=== PATIENT | female | born 1960 | race Caucasian/White ===

== ENCOUNTER 2018-02-10 17:48 | Emergency (ER) | payer OTHER, SELFPAY ==
[2018-02-10 17:52] VITALS: BP 131/77; PULSE 69; RESP 16; TEMP 36.7; O2SAT 97
--- NOTE | 2018-02-10 18:00 | ED.LOWEXIN ---
HPI - Extremity Injury (Lower) <FRANCISCO Pepe - Last Filed: 02/10/18 23:38> General Chief Complaint: Extremity Injury, Lower Stated Complaint: SWOLLEN KNEE Time Seen by Provider: 02/10/18 18:00 History of Present Illness HPI Narrative: 57-year-old female here for complaint of a right mid sided knee pain over the past 2-3 days. She states that she has been stepping high steps up and down in and out of a boat over the last few days. She denies a specific injuries to the right knee. Increased pain with ambulation. She states she does have a hard time ambulating due to the pain. No other concerns or complaints. She denies any relievers of the pain other than not bearing weight. MD complaint: knee injury Related Data Home Medications Medication Instructions Recorded Confirmed Aspir-81 02/10/18 diclofenac potassium 50 mg PO BID 02/10/18 02/10/18 gemfibrozil 02/10/18 hydrochlorothiazide 12.5 mg PO DAILY 02/10/18 02/10/18 losartan 25 mg PO DAILY 02/10/18 02/10/18 omega 2-tac-lwp-fish oil [Fish Oil] 02/10/18 Allergies Allergy/AdvReac Type Severity Reaction Status Date / Time bee venom protein (honey bee) Allergy Verified 02/10/18 17:54 clarithromycin [From Biaxin] Allergy Verified 02/10/18 17:54 Penicillins Allergy Verified 02/10/18 17:54 Review of Systems <FRANCISCO ePpe - Last Filed: 02/10/18 23:38> Constitutional Denies chills, Denies fever(s), Denies lethargy and Denies weakness Eyes Denies change in vision, Denies eye discharge, Denies irritation and Denies loss of vision ENT Ears, Nose, Mouth, and Throat: Denies change in voice, Denies neck pain and Denies sore throat Cardiovascular Denies chest pain, Denies irregular heart rhythm, Denies lightheadedness, Denies palpitations, Denies dyspnea, Denies dyspnea on exertion and Denies orthopnea Respiratory Denies cough, Denies dyspnea, Denies dyspnea on exertion and Denies wheezing Gastrointestinal Gastrointestinal: Denies abdominal pain, Denies change in bowel habits, Denies diarrhea, Denies nausea and Denies vomiting Genitourinary Denies hematuria, Denies flank pain, Denies urinary incontinence and Denies urinary urgency Musculoskeletal Denies neck pain Comments: Right knee pain Integumentary/Breasts Denies pruritus, Denies erythema, Denies rash and Denies wounds Neurologic Denies confusion, Denies loss of vision and Denies weakness Psychiatric Denies anxiety, Denies confusion, Denies depression, Denies homicidal ideation and Denies suicidal ideation Endocrine Denies palpitations Allergic/Immunologic Denies wheezing Exam <FRANCISCO Pepe - Last Filed: 02/10/18 23:38> Initial Vital Signs Initial Vital Signs: Vital Signs Temperature 98.1 F 02/10/18 17:52 Pulse Rate 69 02/10/18 17:52 Respiratory Rate 16 02/10/18 17:52 Blood Pressure 131/77 H 02/10/18 17:52 Pulse Oximetry 97 02/10/18 17:52 Const General: cooperative and well developed Nutritional Appearance: well nourished Orientation: alert, awake, oriented x3 and not confused HENMT Mouth: oral mucosae normal and moist mucous membranes Eyes Conjunctivae: conjunctivae normal Sclera: sclerae normal Pupils: PERRL EOM: EOM intact bilaterally Resp Effort & Inspection: normal respiratory effort, able to speak in complete sentences, no respiratory distress and no use of accessory muscles Auscultation: clear to auscultation bilaterally, no rales, no rhonchi and no wheezes Cardio Rate: regular rate Rhythm: regular rhythm Heart Sounds: no click, no gallops, no murmurs and no rubs Pulses: normal peripheral pulses Skin General: no rashes or lesions noted, No jaundice and No petechiae Extrem Other: Right knee with no signs of trauma. No swelling no ecchymosis no erythema. Full range of motion. Distal sensation is intact. Distal range of motion is intact. Distal pulses are intact. Negative anterior-posterior drawer sign. Negative varus and valgus stress test. <Archie Marie MD - Last Filed: 02/28/18 09:34> Initial Vital Signs Initial Vital Signs: Vital Signs Temperature 98.1 F 02/10/18 17:52 Pulse Rate 69 02/10/18 17:52 Respiratory Rate 16 02/10/18 17:52 Blood Pressure 131/77 H 02/10/18 17:52 Pulse Oximetry 97 02/10/18 17:52 Course <FRANCISCO Pepe - Last Filed: 02/10/18 23:38> Orders Ordered: ED Orders 02/10/18 19:16 XR knee RT 3V Stat Vital Signs - 8 hr 02/10/18 17:52 02/10/18 20:00 02/10/18 20:30 Temperature 98.1 F Pulse Rate 69 88 Pulse Rate [Dorsalis Pedis] 72 Respiratory Rate 16 14 Blood Pressure 131/77 H Blood Pressure [Left Arm] 128/72 H Pulse Oximetry 97 98 <Archie Marie MD - Last Filed: 02/28/18 09:34> Orders Ordered: ED Orders 02/10/18 19:16 XR knee RT 3V Stat Vital Signs - 8 hr 02/10/18 17:52 02/10/18 20:00 02/10/18 20:30 Temperature 98.1 F Pulse Rate 69 88 Pulse Rate [Dorsalis Pedis] 72 Respiratory Rate 16 14 Blood Pressure 131/77 H Blood Pressure [Left Arm] 128/72 H Pulse Oximetry 97 98 MDM - Extremity Injury (Lower) <FRANCISCO Pepe - Last Filed: 02/10/18 23:38> Imaging Data knee: Radiologist's impression: Signed Patient: DEANNA SALINAS MR#: [id number] : 1960 Acct:[id number] Age/Sex: 57 / F Date of Service: 02/10/18 Loc: ED Accession Number: [id number] Procedure: XR knee RT 3V Ordering Provider: Jadiel Bradley PROCEDURE: XR KNEE RT 3V INDICATIONS: Pain in right knee last 3 days TECHNIQUE: 3 views of the knee were acquired. COMPARISON: None. FINDINGS: Bones: No fractures or dislocations. No suspicious bony lesions. Soft tissues: No joint effusion. No suspicious soft tissue calcifications. IMPRESSION: No trauma found, mild knee joint osteoarthritis at the medial and lateral compartments, moderate osteoarthritic thinning of the joint width at the lateral facet of the patellofemoral joint. Dictated by: Dmitry Burrows M.D. on 02/10/2018 at 20:13 MDM Narrative Medical decision making narrative: X-ray the right knee was obtained was negative for any acute findings. Signs and symptoms presents as acute sprain. She is placed in knee immobilizer and crutches for support and nonweightbearing. [id number] Tylenol and Motrin as needed for any discomfort. Ice and elevation to help with swelling. Follow up with her primary care provider next week for re-evaluation. For any worsening symptoms return to the emergency room. If still painful next week recommend advanced imaging such as MRI. Discharge Plan Departure Patient Disposition: Home, Self-Care Clinical Impression: Right knee sprain Discharge Date/Time: 02/10/18 20:49 Interventions: ED Discharge Assessment Last Done: 02/10/18 20:48 Instructions: DI for Knee Sprain Activity Restrictions/Additional Instructions: X-ray the right knee was obtained was negative for any acute findings. Signs and symptoms presents as acute sprain. You areplaced in knee immobilizer and crutches for support and nonweightbearing use as directed. [id number] Tylenol and Motrin as needed for any discomfort. Ice and elevation to help with swelling. Follow up with her primary care provider next week for re-evaluation. For any worsening symptoms return to the emergency room. If still painful next week recommend advanced imaging such as MRI. Prescriptions: No Action Aspir-81 RF: 0 losartan 25 mg Tablet 25 mg PO DAILY RF: 0 hydrochlorothiazide 12.5 mg Capsule 12.5 mg PO DAILY RF: 0 diclofenac potassium 25 mg Capsule 50 mg PO BID RF: 0 omega 9-ozh-bir-fish oil [Fish Oil] 1,000 mg (120 mg-180 mg) Capsule RF: 0 gemfibrozil RF: 0 Referrals: [facility] [Provider Group] <Archie Marie MD - Last Filed: 02/28/18 09:34> Sign Out Provider Sign Out Attestation: The PA/PROFESSOR OF GENETICS functioned independently for the care of this pt, I was available, but not asked to participate in care. I am unable to determine appropriateness of management without personally examining the pt.
--- NOTE | 2018-02-10 19:16 | DI.RAD.S_ITS ---
PROCEDURE: XR KNEE RT 3V INDICATIONS: Pain in right knee last 3 days TECHNIQUE: 3 views of the knee were acquired. COMPARISON: None. FINDINGS: Bones: No fractures or dislocations. No suspicious bony lesions. Soft tissues: No joint effusion. No suspicious soft tissue calcifications. IMPRESSION: No trauma found, mild knee joint osteoarthritis at the medial and lateral compartments, moderate osteoarthritic thinning of the joint width at the lateral facet of the patellofemoral joint. Dictated by: Dmitry Burrows M.D. on 02/10/2018 at 20:13 Approved by: Dmitry Burrows M.D. on 02/10/2018 at 20:14
[2018-02-10 20:00] VITALS: PULSE 72
--- NOTE | 2018-02-10 20:26 | ED_ITS ---
HPI - Extremity Injury (Lower) <FRANCISCO Pepe - Last Filed: 02/10/18 23:38> General Chief Complaint: Extremity Injury, Lower Stated Complaint: SWOLLEN KNEE Time Seen by Provider: 02/10/18 18:00 History of Present Illness HPI Narrative: 57-year-old female here for complaint of a right mid sided knee pain over the past 2-3 days. She states that she has been stepping high steps up and down in and out of a boat over the last few days. She denies a specific injuries to the right knee. Increased pain with ambulation. She states she does have a hard time ambulating due to the pain. No other concerns or complaints. She denies any relievers of the pain other than not bearing weight. MD complaint: knee injury Related Data Home Medications Medication Instructions Recorded Confirmed Aspir-81 02/10/18 diclofenac potassium 50 mg PO BID 02/10/18 02/10/18 gemfibrozil 02/10/18 hydrochlorothiazide 12.5 mg PO DAILY 02/10/18 02/10/18 losartan 25 mg PO DAILY 02/10/18 02/10/18 omega 9-ytg-yvs-fish oil [Fish Oil] 02/10/18 Allergies Allergy/AdvReac Type Severity Reaction Status Date / Time bee venom protein (honey bee) Allergy Verified 02/10/18 17:54 clarithromycin [From Biaxin] Allergy Verified 02/10/18 17:54 Penicillins Allergy Verified 02/10/18 17:54 Review of Systems <FRANCISCO Ppee - Last Filed: 02/10/18 23:38> Constitutional Denies chills, Denies fever(s), Denies lethargy and Denies weakness Eyes Denies change in vision, Denies eye discharge, Denies irritation and Denies loss of vision ENT Ears, Nose, Mouth, and Throat: Denies change in voice, Denies neck pain and Denies sore throat Cardiovascular Denies chest pain, Denies irregular heart rhythm, Denies lightheadedness, Denies palpitations, Denies dyspnea, Denies dyspnea on exertion and Denies orthopnea Respiratory Denies cough, Denies dyspnea, Denies dyspnea on exertion and Denies wheezing Gastrointestinal Gastrointestinal: Denies abdominal pain, Denies change in bowel habits, Denies diarrhea, Denies nausea and Denies vomiting Genitourinary Denies hematuria, Denies flank pain, Denies urinary incontinence and Denies urinary urgency Musculoskeletal Denies neck pain Comments: Right knee pain Integumentary/Breasts Denies pruritus, Denies erythema, Denies rash and Denies wounds Neurologic Denies confusion, Denies loss of vision and Denies weakness Psychiatric Denies anxiety, Denies confusion, Denies depression, Denies homicidal ideation and Denies suicidal ideation Endocrine Denies palpitations Allergic/Immunologic Denies wheezing Exam <FRANCISCO Pepe - Last Filed: 02/10/18 23:38> Initial Vital Signs Initial Vital Signs: Vital Signs Temperature 98.1 F 02/10/18 17:52 Pulse Rate 69 02/10/18 17:52 Respiratory Rate 16 02/10/18 17:52 Blood Pressure 131/77 H 02/10/18 17:52 Pulse Oximetry 97 02/10/18 17:52 Const General: cooperative and well developed Nutritional Appearance: well nourished Orientation: alert, awake, oriented x3 and not confused HENMT Mouth: oral mucosae normal and moist mucous membranes Eyes Conjunctivae: conjunctivae normal Sclera: sclerae normal Pupils: PERRL EOM: EOM intact bilaterally Resp Effort & Inspection: normal respiratory effort, able to speak in complete sentences, no respiratory distress and no use of accessory muscles Auscultation: clear to auscultation bilaterally, no rales, no rhonchi and no wheezes Cardio Rate: regular rate Rhythm: regular rhythm Heart Sounds: no click, no gallops, no murmurs and no rubs Pulses: normal peripheral pulses Skin General: no rashes or lesions noted, No jaundice and No petechiae Extrem Other: Right knee with no signs of trauma. No swelling no ecchymosis no erythema. Full range of motion. Distal sensation is intact. Distal range of motion is intact. Distal pulses are intact. Negative anterior-posterior drawer sign. Negative varus and valgus stress test. <Archie Marie MD - Last Filed: 02/28/18 09:34> Initial Vital Signs Initial Vital Signs: Vital Signs Temperature 98.1 F 02/10/18 17:52 Pulse Rate 69 02/10/18 17:52 Respiratory Rate 16 02/10/18 17:52 Blood Pressure 131/77 H 02/10/18 17:52 Pulse Oximetry 97 02/10/18 17:52 Course <FRANCISCO Pepe - Last Filed: 02/10/18 23:38> Orders Ordered: ED Orders 02/10/18 19:16 XR knee RT 3V Stat Vital Signs - 8 hr 02/10/18 17:52 02/10/18 20:00 02/10/18 20:30 Temperature 98.1 F Pulse Rate 69 88 Pulse Rate [Dorsalis Pedis] 72 Respiratory Rate 16 14 Blood Pressure 131/77 H Blood Pressure [Left Arm] 128/72 H Pulse Oximetry 97 98 <Archie Marie MD - Last Filed: 02/28/18 09:34> Orders Ordered: ED Orders 02/10/18 19:16 XR knee RT 3V Stat Vital Signs - 8 hr 02/10/18 17:52 02/10/18 20:00 02/10/18 20:30 Temperature 98.1 F Pulse Rate 69 88 Pulse Rate [Dorsalis Pedis] 72 Respiratory Rate 16 14 Blood Pressure 131/77 H Blood Pressure [Left Arm] 128/72 H Pulse Oximetry 97 98 MDM - Extremity Injury (Lower) <FRANCISCO Pepe - Last Filed: 02/10/18 23:38> Imaging Data knee: Radiologist's impression: Signed Patient: DEANNA SALINAS MR#: [id number] : 1960 Acct:[id number] Age/Sex: 57 / F Date of Service: 02/10/18 Loc: ED Accession Number: [id number] Procedure: XR knee RT 3V Ordering Provider: Jadiel Bradley PROCEDURE: XR KNEE RT 3V INDICATIONS: Pain in right knee last 3 days TECHNIQUE: 3 views of the knee were acquired. COMPARISON: None. FINDINGS: Bones: No fractures or dislocations. No suspicious bony lesions. Soft tissues: No joint effusion. No suspicious soft tissue calcifications. IMPRESSION: No trauma found, mild knee joint osteoarthritis at the medial and lateral compartments, moderate osteoarthritic thinning of the joint width at the lateral facet of the patellofemoral joint. Dictated by: Dmitry Burrows M.D. on 02/10/2018 at 20:13 MDM Narrative Medical decision making narrative: X-ray the right knee was obtained was negative for any acute findings. Signs and symptoms presents as acute sprain. She is placed in knee immobilizer and crutches for support and nonweightbearing. [id number] Tylenol and Motrin as needed for any discomfort. Ice and elevation to help with swelling. Follow up with her primary care provider next week for re-evaluation. For any worsening symptoms return to the emergency room. If still painful next week recommend advanced imaging such as MRI. Discharge Plan Departure Patient Disposition: Home, Self-Care Clinical Impression: Right knee sprain Discharge Date/Time: 02/10/18 20:49 Interventions: ED Discharge Assessment Last Done: 02/10/18 20:48 Instructions: DI for Knee Sprain Activity Restrictions/Additional Instructions: X-ray the right knee was obtained was negative for any acute findings. Signs and symptoms presents as acute sprain. You areplaced in knee immobilizer and crutches for support and nonweightbearing use as directed. [id number] Tylenol and Motrin as needed for any discomfort. Ice and elevation to help with swelling. Follow up with her primary care provider next week for re- evaluation. For any worsening symptoms return to the emergency room. If still painful next week recommend advanced imaging such as MRI. Prescriptions: No Action Aspir-81 RF: 0 losartan 25 mg Tablet 25 mg PO DAILY RF: 0 hydrochlorothiazide 12.5 mg Capsule 12.5 mg PO DAILY RF: 0 diclofenac potassium 25 mg Capsule 50 mg PO BID RF: 0 omega 1-iyx-ozn-fish oil [Fish Oil] 1,000 mg (120 mg-180 mg) Capsule RF: 0 gemfibrozil RF: 0 Referrals: [facility] [Provider Group] <Archie Marie MD - Last Filed: 02/28/18 09:34> Sign Out Provider Sign Out Attestation: The PA/AUTOMOTIVE AIRCONDITIONING MECHANIC functioned independently for the care of this pt, I was available, but not asked to participate in care. I am unable to determine appropriateness of management without personally examining the pt.
[2018-02-10 20:30] VITALS: BP 128/72; PULSE 88; RESP 14; O2SAT 98
== END 2018-02-10 20:49 | disposition home or self-care (01) ==
PROVIDERS: Emergency Provider Nurse Practitioner Family
DX: S83.91XA Sprain of unspecified site of right knee, initial encounter (principal)
CPT/HCPCS: 73562; 99283